=== PATIENT | female | born 1970 | race Caucasian/White ===

== ENCOUNTER 2016-07-12 19:27 | Emergency (ER) | payer BC ==
[~2016-07-12] VITALS: Ht 162.6 cm; Wt 130.9 kg
[~2016-07-12 19:27] MED LIST: ALBU1AER9 INH; ASPI325T45 PO; BNT/10 PO; CITA20TA9 PO; HYDR12.56 PO; PRLSR20 PO; SIMV40TA2 PO; TOPI50TA16 PO; TRAM-10 PO
[2016-07-12 19:35] VITALS: TEMP 36.8; Ht 162.6 cm; Wt 130.9 kg
[2016-07-12] MEDS ORDERED: PROCHLORPERAZINE 5 MG/ML 2 ML VIAL IV STA (20:13)
[2016-07-12] MEDS ORDERED: SODIUM CHLORIDE 0.9% 1000ML 1,000 ML IV STA (20:13)
[2016-07-12] MEDS ORDERED: DiphenhydrAMINE HCL 50 MG/ML VIAL IV STA (20:13)
[2016-07-12] MEDS ORDERED: PROCHLORPERAZINE INJ 10 MG in SYRINGE 8 ML IV SCH (20:13)
[2016-07-12] MEDS ORDERED: KETOROLAC TROMETHAMINE 30 MG/ML VIAL IV STA (20:13)
[2016-07-12] MEDS ORDERED: DEXAMETHASONE SOD INJ 10 MG/ML VIAL IV ONE (20:15)
--- NOTE | 2016-07-12 20:16 | EMERGENCY ROOM VISIT NOTE ---
History Report prepared by Polo: Hailey Umaña Under the Supervision of: Dr. Narciso Jensen M.D. First contact with patient: 19:54 Chief Complaint: HEADACHE Stated Complaint: HEADACHE History of Present Illness The patient is a 46 year old female who presents to the Emergency Room with complaints of a gradually worsening achy headache that began yesterday. The patient rates her discomfort as a 10/10 in severity. She states the pain is all over her head and radiating down her jaw. The patient has a history of headaches and has seen Dr. Young in neurology. She states that her headache today feels different than her typical migraines. The patient states that she has a history of a stroke occurring five to six years ago. She states that the reason for onset was unknown. She lost movement in her left arm, her eyes rolled to the back of her head, and she had slurring speech. All symptoms from the stroke resolved and she has regained full strength. The patient takes an Aspirin daily. Source of History: patient Onset: yesterday Position: head, jaw Symptom Intensity: 10/10 Quality: ache, other (radiating) Timing: worsening Note: The patient notes pain radiating to her jaw. Review of Systems See HPI for pertinent positives & negatives. A total of 10 systems reviewed and were otherwise negative. Past Medical & Surgical Medical Problems: (1) ANXIETY STATE NOS (2) DEPRESSIVE DISORDER NEC (3) DIAPHRAGMATIC HERNIA (4) GASTROPARESIS (5) HYPERLIPIDEMIA NEC/NOS (6) MORBID OBESITY (7) POLYCYSTIC OVARIES Family History Hypertension Social History Smoking Status: Never Smoker Alcohol Use: none Drug Use: none Marital Status: Housing Status: lives with family Occupation Status: employed Current/Historical Medications Scheduled Allopurinol (Allopurinol), 100 MG PO DAILY Aspirin (Aspirin), 325 MG PO QAM Citalopram (Citalopram Hydrobromide), 20 MG PO DAILY Hydrochlorothiazide (Hctz), 12.5 MG PO QAM Omeprazole (Prilosec), 20 MG PO BID Simvastatin (Zocor), 40 MG PO QPM Scheduled PRN Tramadol (Ultram), 100 MG PO Q6 PRN for Pain [Proair], 2 PUFF INH Q4 PRN for SOB/Wheezing Allergies Coded Allergies: Dust (Verified Allergy, Unknown, HAY FEVER, 07/12/16) Grass (Verified Allergy, Unknown, HAY FEVER, 07/12/16) Molds and Smuts (Verified Allergy, Unknown, HAY FEVER, 07/12/16) NO KNOWN DRUG ALLERGIES (Verified Allergy, Unknown, NKDA, 07/12/16) Lisinopril (Verified Adverse Reaction, Intermediate, COUGH, 07/12/16) Prednisone (Verified Adverse Reaction, Unknown, MAKES FEEL HOT, 07/12/16) ONLY IF LARGE DOSE Physical Exam Vital Signs Date Time Temp Pulse Resp B/P Pulse Ox O2 Delivery O2 Flow Rate FiO2 07/12/16 21:53 78 20 127/91 98 Room Air 07/12/16 21:15 77 20 140/99 98 Room Air 07/12/16 20:25 69 20 152/113 98 Room Air 07/12/16 19:35 36.8 75 16 147/107 97 Room Air Physical Exam GENERAL: Patient is a healthy-appearing well-nourished, no evidence of meningitis or encephalitis upon exam HEAD: Normocephalic atraumatic EYES: Ocular movements intact pupils equal and react to light OROPHARYNX mucous membranes are moist no exudates present no erythema or edema present NECK: Supple no nuchal rigidity CHEST: Good equal expansion LUNGS: Clear and equal to auscultation CARDIAC: Normal S1 and S2 ABDOMEN: Soft nontender no guarding BACK: No CVA tenderness EXTREMITIES: No pain upon palpation normal muscle strength in all groups no clubbing cyanosis or edema NEURO: Patient is following commands is answering questions appropriately. Alert and oriented x3 Cranial Nerves 2-12 grossly intact Medical Decision & Procedures Medications Administered Medications (Trade) Dose Ordered Sig/Arnel Route Start Time Stop Time Status Last Admin Dose Admin Sodium Chloride (Nss 1000ml) 1,000 ml @ 999 mls/hr Q1H1M STAT IV 07/12/16 20:13 07/12/16 21:13 DC 07/12/16 20:23 999 MLS/HR Diphenhydramine HCl (Benadryl Inj) 50 mg NOW STAT IV 07/12/16 20:13 07/12/16 20:15 DC 07/12/16 20:23 50 MG Ketorolac Tromethamine (Toradol Inj) 30 mg NOW STAT IV 07/12/16 20:13 07/12/16 20:15 DC 07/12/16 20:23 30 MG Dexamethasone Sodium Phosphate 10 mg 10 mg NOW ONCE IV 07/12/16 20:15 07/12/16 20:16 DC 07/12/16 20:22 10 MG Prochlorperazine Edisylate/Syringe (Compazine Inj/ Syringe) 10 ml @ 5 mls/min TODAY@2012 IV 07/12/16 20:13 07/12/16 21:30 DC 07/12/16 20:32 5 MLS/MIN ED Course 1955: Past medical records reviewed. The patient was evaluated in room A3. A complete history and physical examination was performed. 2012: Prochlorperazine Edisylate 10 mg/ Syringe 10 ml @ 5 mls/min IV, Toradol Inj 30 mg IV, Benadryl Inj 50 mg IV, NSS 1000 ml @ 999 mls/hr IV 2014: Decadron Inj 10 mg IV. 2150: I reassessed the patient and she is resting comfortably. I explained the exam findings and the treatment plan to her. She verbalized complete understanding and agreement. The patient will be discharged home. Medical Decision Differential diagnosis: Etiologies such as migraine headache, meningitis, sinusitis, CO exposure, ICH, SAH, infection, tumor, headache, sinus thrombosis, arterial dissection, as well as others were entertained. This is a 46-year-old female who presents emergency department complaining of headache. The patient has no evidence of meningitis encephalitis on examination. The patient has had imaging of her head previously. Based on these findings an IV was established, the patient given normal saline bolus, Toradol, Compazine, Benadryl. I will note that the patient's headache came on gradually and this seems more consistent with a migraine or tension headache. Repeat examination revealed much improvement patient's symptoms. I do believe the patient as well as to be discharged home for follow-up with her primary care physician. Patient was in agreement with the treatment plan. Impression Primary Impression: Headache Scribe Attestation The scribe's documentation has been prepared under my direction and personally reviewed by me in its entirety. I confirm that the note above accurately reflects all work, treatment, procedures, and medical decision making performed by me. Departure Information Dispostion Home / Self-Care Referrals Greg Mack M.D. (PCP) Forms HOME CARE DOCUMENTATION FORM, IMPORTANT VISIT INFORMATION, School Instructions, Work Instructions Patient Instructions Headache Pain, My [facility] Additional Instructions Increase fluid over next 48 hours You have been examined and treated today on an emergency basis only. This is not a substitute for, or an effort to provide, complete comprehensive medical care. It is impossible to recognize and treat all injuries or illnesses in a single emergency department visit. It is therefore important that you follow up closely with Dr Mack. Call as soon as possible for an appointment. Thank you for your time and consideration. I look forward to speaking with you again soon. Please don't hesitate to call us if you have any questions. Problem Qualifiers Primary Impression: Headache Headache type: unspecified Headache chronicity pattern: acute headache Intractability: not intractable Qualified Codes: R51 - Headache
[2016-07-12] MEDS ORDERED: ALL100 PO (20:17)
[2016-07-12] MEDS ORDERED: CLX/20 PO (20:17)
[2016-07-12] MEDS ORDERED: PROAIR INH (20:17)
[2016-07-12 21:53] VITALS: BP 127/91; PULSE 78; O2SAT 98
== END 2016-07-12 22:10 | disposition home or self-care (01) ==
LOC: C.EDB 19:27 → C.EDA 22:10
DX: R51 Headache (principal); E78.5 Hyperlipidemia, unspecified; F41.9 Anxiety disorder, unspecified; F32.9 Major depressive disorder, single episode, unspecified; K31.84 Gastroparesis; E28.2 Polycystic ovarian syndrome; Z79.82 Long term (current) use of aspirin; Z79.899 Other long term (current) drug therapy; Z88.8 Allergy status to other drugs, medicaments and biological substances; Z91.018 Allergy to other foods; Z82.49 Family history of ischemic heart disease and other diseases of the circulatory system

== ENCOUNTER 2017-07-13 21:01 | Emergency (ER) | payer BC, OTHER ==
[~2017-07-13] VITALS: Ht 162.6 cm; Wt 129.9 kg
[~2017-07-13 21:01] MED LIST changes: -ALBU1AER9 INH; +ALL100 PO; -ASPI325T45 PO; -BNT/10 PO; -CITA20TA9 PO; +CLX/20 PO; +PROAIR INH; -TOPI50TA16 PO
[2017-07-13 21:06] VITALS: TEMP 36.6; Ht 162.6 cm; Wt 129.9 kg
[2017-07-13] MEDS ORDERED: SODIUM CHLORIDE 0.9% 500ML 500 ML IV STA (21:25)
[2017-07-13] MEDS ORDERED: KETOROLAC TROMETHAMINE 30 MG/ML VIAL IV STA (21:25)
[2017-07-13 22:04] LABS: BASO % 0.4 %; BASO ABS # 0.03 K/uL (0-0.2); EOS ABS # 0.14 K/uL (0-0.5); HEMATOCRIT 39.4 % (37-47); HEMOGLOBIN 14.3 g/dL (12.0-16.0); IG# 0.01 K/uL (0.00-0.02); LYMPH % 31.4 %; LYMPH ABS # 2.22 K/uL (1.2-3.4); MEAN CELL VOLUME 85.8 fL (80-100); MEAN CORPUSCULAR HEMOGLOBIN 31.2 pg (25-34); MEAN CORPUSCULAR HGB CONC 36.3 g/dl (32-36); MEAN PLATELET VOLUME 8.5 fL (7.4-10.4); MONO % 7.4 %; MONO ABS # 0.52 K/uL (0.11-0.59); NEUT % 58.7 %; NEUT ABS # 4.14 K/uL (1.4-6.5); PLATELET COUNT 216 K/uL (130-400); RED CELL DISTRIBUTION WIDTH CV 12.9 % (11.5-14.5); WHITE BLOOD COUNT 7.06 K/uL (4.8-10.8)
[2017-07-13 22:30] LABS: ALT/SGPT 27 U/L (12-78); BLOOD UREA NITROGEN 16 mg/dl (7-18); CALCIUM 8.9 mg/dl (8.5-10.1); CARBON DIOXIDE 30 mmol/L (21-32); GLUCOSE 100 mg/dl (70-99); LIPASE 142 U/L (73-393); POTASSIUM 3.7 mmol/L (3.5-5.1); SODIUM 139 mmol/L (136-145)
--- NOTE | 2017-07-13 22:31 | DIAGNOSTIC IMAGING REPORT ---
CHEST ONE VIEW PORTABLE HISTORY: Atypical CHEST PAIN COMPARISON: Chest 12/07/2014. FINDINGS: Low lung volumes with mild elevation the right hemidiaphragm and borderline enlargement cardiac silhouette. This remains unchanged. The lungs are clear. No pleural effusions. No pneumothorax. IMPRESSION: No significant change compared to the prior study. No acute process. Electronically signed by: Daryn Jimenez M.D. 07/13/2017 10:29 PM Dictated Date/Time: 07/13/2017 10:28 PM
[2017-07-13 22:45] LABS: ALKALINE PHOSPHATASE 84 U/L (45-117); AST/SGOT 22 U/L (15-37); TOTAL PROTEIN 7.8 gm/dl (6.4-8.2)
[2017-07-13] MEDS ORDERED: OMEP20CA9 PO (22:49)
[2017-07-13] MEDS ORDERED: SIMV40TA4 PO (22:49)
[2017-07-13] MEDS ORDERED: NRN100 PO (22:49)
[2017-07-13] MEDS ORDERED: TPM25 PO (22:49)
--- NOTE | 2017-07-13 22:52 | EMERGENCY ROOM VISIT NOTE ---
History Report prepared by Polo: Zamzam Sprague Under the Supervision of: Dr. Igor Larson M.D. First contact with patient: 21:10 Chief Complaint: CARDIAC ASSESSMENT Stated Complaint: CHEST PAINS History of Present Illness The patient is a 47 year old female who presents to the Emergency Room with complaints of constant chest pain starting 2 days ago. The pain is in the left side of her chest and goes across her chest at times. It also radiates to her left shoulder. She currently rates her discomfort as a 7-8/10 in severity. She states that she has had this pain in the past and it resolved on its own. Her pain improves with lying flat. She has been having cold symptoms for the past 1.5 weeks. She has had a mild cough which she does not think is the cause of her chest pain. She denies any heavy lifting or change in activity recently. She denies any back pain, SOB, nausea, left arm pain, vomiting, abdominal pain, urinary symptoms, lightheadedness, dizziness, or diaphoresis. She denies any history of blood clots, cancer, or diabetes. She denies any recent prolonged travel or surgery. She denies any hormone use. She is a nonsmoker. She denies any family history of heart problems at a young age. Source of History: patient Onset: 2 days ago Position: chest (left) Symptom Intensity: 7-8/10 Timing: constant Modifying Factors (Relieving): other (lying flat) Associated Symptoms: + cough, No diaphoresis, No SOB, No nausea, No vomiting , No abdominal pain, No back pain, No urinary symptoms Review of Systems See HPI for pertinent positives and negatives. A total of ten systems were reviewed and were otherwise negative. Past Medical & Surgical Medical Problems: (1) ANXIETY STATE NOS (2) DEPRESSIVE DISORDER NEC (3) DIAPHRAGMATIC HERNIA (4) GASTROPARESIS (5) HYPERLIPIDEMIA NEC/NOS (6) MORBID OBESITY (7) POLYCYSTIC OVARIES Family History Hypertension Social History Smoking Status: Never Smoker Alcohol Use: none Drug Use: none Marital Status: Housing Status: lives with family Occupation Status: employed Current/Historical Medications Scheduled Aspirin (Aspirin), 325 MG PO QAM Citalopram (Citalopram Hydrobromide), 20 MG PO DAILY Gabapentin (Gabapentin), 100 MG PO TID Hydrochlorothiazide (Hctz), 12.5 MG PO QAM Omeprazole (Prilosec), 20 MG PO BID Simvastatin (Zocor), 40 MG PO QPM Topiramate (Topiramate), 25 MG PO HS Scheduled PRN Tramadol (Ultram), 100 MG PO Q6H PRN for Pain Allergies Coded Allergies: Dust (Verified Allergy, Unknown, HAY FEVER, 07/12/16) Grass (Verified Allergy, Unknown, HAY FEVER, 07/12/16) Molds and Smuts (Verified Allergy, Unknown, HAY FEVER, 07/12/16) NO KNOWN DRUG ALLERGIES (Verified Allergy, Unknown, NKDA, 07/12/16) Lisinopril (Verified Adverse Reaction, Intermediate, COUGH, 07/12/16) Prednisone (Verified Adverse Reaction, Unknown, MAKES FEEL HOT, 07/12/16) ONLY IF LARGE DOSE Physical Exam Vital Signs Date Time Temp Pulse Resp B/P (MAP) Pulse Ox O2 Delivery O2 Flow Rate FiO2 07/13/17 22:59 77 20 118/83 98 07/13/17 21:20 92 07/13/17 21:15 Room Air 07/13/17 21:06 36.6 90 20 128/89 96 Room Air Physical Exam GENERAL: Awake, alert, well-appearing, in no distress HENT: Normocephalic, atraumatic. Oropharynx unremarkable. EYES: Normal conjunctiva. Sclera non-icteric. NECK: Supple. No nuchal rigidity. FROM. No JVD. RESPIRATORY: Clear to auscultation. CARDIAC: Regular rate, normal rhythm. Extremities warm and well perfused. Pulses equal. ABDOMEN: Soft, non-distended. No tenderness to palpation. No rebound or guarding. No masses. RECTAL: Deferred. MUSCULOSKELETAL: Chest examination reveals mild reproducible anterior chest wall tenderness. The back is symmetrical on inspection without obvious abnormality. There is no CVA tenderness to palpation. No joint edema. LOWER EXTREMITIES: Calves are equal size bilaterally and non-tender. No edema. No discoloration. NEURO: Normal sensorium. No sensory or motor deficits noted. SKIN: No rash or jaundice noted. Medical Decision & Procedures ER Provider Diagnostic Interpretation: Radiology results as stated below per my review and radiologist interpretation: CHEST ONE VIEW PORTABLE HISTORY: Atypical CHEST PAIN COMPARISON: Chest 12/07/2014. FINDINGS: Low lung volumes with mild elevation the right hemidiaphragm and borderline enlargement cardiac silhouette. This remains unchanged. The lungs are clear. No pleural effusions. No pneumothorax. IMPRESSION: No significant change compared to the prior study. No acute process. Electronically signed by: Daryn Jimenez M.D. 07/13/2017 10:29 PM Dictated Date/Time: 07/13/2017 10:28 PM Laboratory Results 07/13/17 21:19 Red Blood Count 4.59, Mean Corpuscular Volume 85.8, Mean Corpuscular Hemoglobin 31.2, Mean Corpuscular Hemoglobin Concent 36.3, Mean Platelet Volume 8.5, Neutrophils (%) (Auto) 58.7, Lymphocytes (%) (Auto) 31.4, Monocytes (%) (Auto) 7.4, Eosinophils (%) (Auto) 2.0, Basophils (%) (Auto) 0.4, Neutrophils # (Auto) 4.14, Lymphocytes # (Auto) 2.22, Monocytes # (Auto) 0.52, Eosinophils # (Auto) 0.14, Basophils # (Auto) 0.03 07/13/17 21:19 Test 07/13/17 21:19 White Blood Count 7.06 K/uL (4.8-10.8) Red Blood Count 4.59 M/uL (4.2-5.4) Hemoglobin 14.3 g/dL (12.0-16.0) Hematocrit 39.4 % (37-47) Mean Corpuscular Volume 85.8 fL (80-100) Mean Corpuscular Hemoglobin 31.2 pg (25-34) Mean Corpuscular Hemoglobin Concent 36.3 g/dl (32-36) Platelet Count 216 K/uL (130-400) Mean Platelet Volume 8.5 fL (7.4-10.4) Neutrophils (%) (Auto) 58.7 % Lymphocytes (%) (Auto) 31.4 % Monocytes (%) (Auto) 7.4 % Eosinophils (%) (Auto) 2.0 % Basophils (%) (Auto) 0.4 % Neutrophils # (Auto) 4.14 K/uL (1.4-6.5) Lymphocytes # (Auto) 2.22 K/uL (1.2-3.4) Monocytes # (Auto) 0.52 K/uL (0.11-0.59) Eosinophils # (Auto) 0.14 K/uL (0-0.5) Basophils # (Auto) 0.03 K/uL (0-0.2) RDW Standard Deviation 40.0 fL (36.4-46.3) RDW Coefficient of Variation 12.9 % (11.5-14.5) Immature Granulocyte % (Auto) 0.1 % Immature Granulocyte # (Auto) 0.01 K/uL (0.00-0.02) Anion Gap 8.0 mmol/L (3-11) Est Creatinine Clear Calc Drug Dose 105.7 ml/min Estimated GFR () 89.5 Estimated GFR (Non- 77.2 BUN/Creatinine Ratio 17.4 (10-20) Calcium Level 8.9 mg/dl (8.5-10.1) Total Bilirubin 0.3 mg/dl (0.2-1) Direct Bilirubin 0.1 mg/dl (0-0.2) Aspartate Amino Transf (AST/SGOT) 22 U/L (15-37) Alanine Aminotransferase (ALT/SGPT) 27 U/L (12-78) Alkaline Phosphatase 84 U/L (45-117) Troponin I < 0.015 ng/ml (0-0.045) Total Protein 7.8 gm/dl (6.4-8.2) Albumin 4.0 gm/dl (3.4-5.0) Lipase 142 U/L (73-393) Laboratory results reviewed by me Medications Administered Medications (Trade) Dose Ordered Sig/Arnel Route Start Time Stop Time Status Last Admin Dose Admin Sodium Chloride 500 ml @ 999 mls/hr Q31M STAT IV 07/13/17 21:25 07/13/17 21:55 DC 07/13/17 21:47 999 MLS/HR Ketorolac Tromethamine (Toradol Inj) 15 mg NOW STAT IV 07/13/17 21:25 07/13/17 21:27 DC 07/13/17 21:47 15 MG ECG Per My Interpretation Indication: chest pain Rate (beats per minute): 82 Rhythm: normal sinus Findings: no acute ischemic change, left axis deviation ED Course 2119: The patient was evaluated in room A3. A complete history and physical exam was performed. 2245: I reevaluated the patient. Discussed results and discharge instructions: She verbalized understanding and agreement. The patient is ready for discharge. Medical Decision I reviewed the patient's past medical history, medications, and the nursing notes as described above. Etiologies such as cardiac ischemia, aortic dissection, pulmonary embolism, pneumonia, pneumothorax, musculoskeletal, infections, gastrointestinal, as well as others were entertained. The patient is a 47-year-old woman who presents emergency department with constant chest pain over the past several days per hpi. The patient is well- appearing, in no acute distress, afebrile stable vital signs. EKG unremarkable. Chest x-ray negative. Labs unremarkable including WBC within normal limits. Troponin negative in the setting of several days of constant pain. Heart score is 2, low risk, thus cardiac etiology unlikely. Patient has no tachycardia or hypoxia or dyspnea making PE not likely. Given the reproducible nature symptoms most consistent with a costochondritis. Plan for NSAIDS, pcp f/u. Findings and plan for follow-up reviewed with patient. Patient agreeable and d/c'd per discharge instructions. Medication Reconcilliation Current Medication List: was personally reviewed by me Blood Pressure Screening Patient's blood pressure: Normal blood pressure Blood pressure disposition: Did not require urgent referral Impression Primary Impression: Chest wall pain Scribe Attestation The scribe's documentation has been prepared under my direction and personally reviewed by me in its entirety. I confirm that the note above accurately reflects all work, treatment, procedures, and medical decision making performed by me. Departure Information Dispostion Home / Self-Care Referrals No Doctor, Assigned (PCP) Patient Instructions ED Chest Pain Costochondritis, My [facility] Additional Instructions Please follow up with your primary care physician in the next 1-3 days for re- evaluation. Your symptoms are most likely due to muscular strain/inflammation. Otherwise, your exam, EKG, chest xray, and lab results did not show signs of an emergent condition at this time. Acetaminophen or ibuprofen for pain and fevers as needed. Drink plenty of fluids to ensure hydration. Return to the emergency department for worsening symptoms as described in the accompanying instructions.
[2017-07-13 22:59] VITALS: BP 118/83; PULSE 77; O2SAT 98
[2017-07-13] MEDS ORDERED: ASPI325T45 PO (23:57)
== END 2017-07-13 23:00 | disposition home or self-care (01) ==
LOC: C.EDB 21:02 → C.EDA 23:00
DX: R07.89 Other chest pain (principal); F41.9 Anxiety disorder, unspecified; F32.9 Major depressive disorder, single episode, unspecified; E78.5 Hyperlipidemia, unspecified; E66.01 Morbid (severe) obesity due to excess calories; Z79.82 Long term (current) use of aspirin; Z88.8 Allergy status to other drugs, medicaments and biological substances